=== PATIENT | female | born 1950 | race Caucasian/White ===

== ENCOUNTER → 2016-06-14 | Outpatient (CLI) | payer MEDICARE, OTHER ==
[~2016-06-14] MED LIST: ACET-62 PO; AMLO10TA2 PO; ATEN-39 PO; CEPH500C2 PO; CYAN25002 PO; DICY10CA13 PO; DOCU-118 PO; DULO60CA56 PO; ENAL20TA76 PO; ESOM40CA24 PO; FERR-22 PO; FOLI-40 PO; GABA-192 PO; HYDR-4074 PO; INSU100V SQ; INSU100V12 SQ; LORA10TA62 PO; LOVA10TA2 PO; MAGN400T26 PO; MELO-267 PO; METF-206 PO; MOME13HF4 IH; NYST60PO11 TOP; TRIA15OI6 TOP; [UNRECOGNIZED DRUG - CODE] PO
[2016-06-14 10:18] LABS: BASOPHILS # (AUTO) 0.1 T/MM3 (0-0.2); BASOPHILS % (AUTO) 0.8 % (0-2); EOSINOPHILS # (AUTO) 0.6 T/MM3 (0-0.5); EOSINOPHILS % (AUTO) 4.9 % (0-4); HCT - HEMATOCRIT 41.5 % (36-46); HGB - HEMOGLOBIN 13.4 GM/DL (12-16); IMMATURE GRANULOCYTE # (AUTO) 0.06 T/MM3 (0.00-0.03); IMMATURE GRANULOCYTE % (AUTO) 0.5 % (0.0-0.5); LYMPHOCYTES # (AUTO) 4.1 T/MM3 (1-4.8); LYMPHOCYTES % (AUTO) 36.1 % (23-45); MEAN CORPUSCULAR HGB 27.5 UUG (26-34); MEAN CORPUSCULAR HGB CONC(MCHC 32.3 GM/DL (31-37); MEAN CORPUSCULAR VOLUME 85.2 UM3 (80-100); MEAN PLATELET VOLUME 9.5 UM3 (9.4-12.4); MONOCYTES % (AUTO) 8.5 % (0-9.0); NEUTROPHILS #(AUTO)-ABSOLUTE 5.6 T/MM3 (1.8-7.7); NEUTROPHILS % (AUTO) 49.2 % (33-66); RED BLOOD COUNT 4.87 M/MM3 (4.00-5.20); WBC - WHITE BLOOD COUNT 11.3 T/MM3 (4.5-11.0)
[2016-06-14 10:37] LABS: ALBUMIN 4.2 G/DL (3.5-5.0); ALBUMIN/GLOBULIN RATIO 1.2 RATIO (1.1-2.2); ALKALINE PHOSPHATASE 99 U/L (38-126); ALT (SGPT) 27 U/L (9-52); ANION GAP 10 MEQ/L (5-15); AST (SGOT) 35 U/L (14-36); BUN/CREATININE RATIO 15 RATIO (6-26); CALCIUM 9.7 MG/DL (8.4-10.2); CHLORIDE 96 MEQ/L (98-107); CO2 - CARBON DIOXIDE 27 MEQ/L (22-30); CREATININE 0.8 MG/DL (0.7-1.2); GLOMERULAR FILTRATION RATE 71; GLUCOSE 119 MG/DL (65-110); LDH 378 U/L (313-618); MAGNESIUM 1.8 MG/DL (1.6-2.3); POTASSIUM 4.7 MEQ/L (3.6-5); SODIUM 133 MEQ/L (134-144); TOTAL PROTEIN 7.6 G/DL (6.3-8.2)
[2016-06-14 11:14] LABS: C-REACTIVE PROTEIN 7.2 MG/L (0-9)
== END ==
LOC: LAB 09:55
PROVIDERS: ATTEND Internal Medicine Hematology & Oncology
DX: D47.9 Neoplasm of uncertain behavior of lymphoid, hematopoietic and related tissue, unspecified (principal); D72.820 Lymphocytosis (symptomatic); D72.828 Other elevated white blood cell count
CPT/HCPCS: 36415; 80053; 83615; 83735; 85025; 85652; 86140

== ENCOUNTER → 2016-07-13 | Outpatient (CLI) | payer MEDICARE, OTHER ==
[2016-07-13 07:08] LABS: HCT - HEMATOCRIT 41.1 % (36-46); HGB - HEMOGLOBIN 13.3 GM/DL (12-16); MEAN CORPUSCULAR HGB 27.8 UUG (26-34); MEAN CORPUSCULAR HGB CONC(MCHC 32.4 GM/DL (31-37); MEAN CORPUSCULAR VOLUME 85.8 UM3 (80-100); MEAN PLATELET VOLUME 10.1 UM3 (9.4-12.4); RED BLOOD COUNT 4.79 M/MM3 (4.00-5.20); WBC - WHITE BLOOD COUNT 13.8 T/MM3 (4.5-11.0)
[2016-07-13 07:23] LABS: ALBUMIN/GLOBULIN RATIO 1.3 RATIO (1.1-2.2); ALKALINE PHOSPHATASE 100 U/L (38-126); ALT (SGPT) 27 U/L (9-52); ANION GAP 13 MEQ/L (5-15); AST (SGOT) 31 U/L (14-36); BUN/CREATININE RATIO 16 RATIO (6-26); CALCIUM 9.7 MG/DL (8.4-10.2); CHLORIDE 96 MEQ/L (98-107); CO2 - CARBON DIOXIDE 29 MEQ/L (22-30); CREATININE 0.8 MG/DL (0.7-1.2); GLOMERULAR FILTRATION RATE 71; GLUCOSE 146 MG/DL (65-110); POTASSIUM 4.6 MEQ/L (3.6-5); SODIUM 138 MEQ/L (134-144); TOTAL PROTEIN 7.2 G/DL (6.3-8.2)
[2016-07-13 07:32] LABS: BAND NEUTROPHILS # 0.1 T/MM3; EOSINOPHILS # (MANUAL) 0.7 T/MM3 (0-0.5); MONOCYTES # (MANUAL) 0.7 T/MM3 (0-0.8); NEUTROPHILS #(MANUAL)-ABSOLUTE 7.3 T/MM3 (1.8-7.7); TOTAL CELLS COUNTED 100 %
[2016-07-13 07:49] LABS: THYROID STIM HORMONE-TSH 1.28 MIU/L (0.47-4.68)
== END ==
LOC: LABNH.PM 01:46
PROVIDERS: ATTEND Family Medicine
DX: E11.65 Type 2 diabetes mellitus with hyperglycemia (principal); D64.9 Anemia, unspecified; I10 Essential (primary) hypertension
CPT/HCPCS: 36415; 80053; 83036; 84439; 84443; 85025; P9604